=== PATIENT | male | born 1945 | race Caucasian/White ===

== ENCOUNTER 2023-12-01 14:46 | Emergency (ER) | payer OTHER ==
[~2023-12-01] VITALS: Ht 180.3 cm; Wt 90.9 kg
[2023-12-01] MEDS: SODIUM CHLORIDE 0.9% 1,000 ML IV ONE (15:18)
[2023-12-01] MEDS: ONDANSETRON HCL 4 MG/2 ML VIAL IV ONE (15:21)
[2023-12-01 15:48] LABS: Basophils # (auto) 0 10 ^3/uL (0-0.2); Basophils % (auto) 0.5 % (0.0-2.0); Eosinophils # (auto) 0 10 ^3/uL (0-0.8); Eosinophils % (auto) 0.3 % (0.0-7.0); Hematocrit 41.7 % (41.0-53.0); Hemoglobin 14.1 g/dL (13.5-17.5); Lymphocytes % (auto) 10.5 % (10.0-50.0); Mean Corpuscular Hemoglobin 30.3 pg (28.0-32.0); Mean Corpuscular Hgb Conc. 33.8 g/dL (32.0-36.0); Mean Corpuscular Volume 89.6 fL (80.0-100.0); Monocytes # (auto) 0.9 10 ^3/uL (0-1.3); Monocytes % (auto) 10.4 % (0.0-12.0); Neutrophils # (auto) 7.1 10 ^3/uL (1.6-8.6); Neutrophils % (auto) 78.3 % (37.0-80.0); Nucleated Red Blood Cells % 0.2 %; Red Blood Cells 4.65 10^6/uL (4.5-5.90); White Blood Cell 9.1 10^3/uL (4.4-10.8)
[2023-12-01 16:02] LABS: Alkaline Phosphatase 47 U/L (46-116); Anion Gap 8 (5-15); Aspartate Aminotransferase 9 U/L (13-40); BUN/Creatinine Ratio 25.4 (10.0-20.0); Blood Urea Nitrogen 18 mg/dL (9-23); Calcium 9.5 mg/dL (8.5-10.1); Carbon Dioxide 26 mmol/L (20-30); Chloride 106 mmol/L (98-107); Glucose 93 mg/dL (74-106); Potassium 3.8 mmol/L (3.5-5.1); Sodium 140 mmol/L (136-145)
[2023-12-01 16:03] LABS: Albumin 3.7 g/dL (3.2-4.8); Bilirubin, Total 0.6 mg/dL (0.2-1.0); Total Protein 5.5 g/dL (5.7-8.2)
[2023-12-01 16:04] LABS: Alanine Aminotransferase < 9 U/L (7-40)
[2023-12-01 17:20] VITALS: RESP 18; O2SAT 95
[2023-12-01 19:30] VITALS: PULSE 62; RESP 20; O2SAT 90
[2023-12-01 22:21] LABS: Urine Bacteria None Seen /hpf (None Seen)
[2023-12-01 22:34] LABS: Urine Blood Negative /uL (Negative); Urine Clarity Clear (Clear); Urine Color Yellow (Yellow); Urine Hyaline Cast MANY /lpf (0 - 2); Urine Mucus FEW (None Seen); Urine Protein, UAD TRACE (Negative); Urine Specific Gravity 1.021 (1.001-1.035); Urine Urobilinogen Normal (Negative); Urine WBC 1 /hpf (0 - 3)
[2023-12-01 23:05] VITALS: BP 97/67; PULSE 66; RESP 24; TEMP 98.3; O2SAT 92
== END 2023-12-01 23:30 | disposition short-term general hospital (02) ==
LOC: ER 14:46 → EDBD 14:46 → ER 23:30
DX: K80.20 Calculus of gallbladder without cholecystitis without obstruction (principal); K56.41 Fecal impaction; I11.0 Hypertensive heart disease with heart failure; I50.9 Heart failure, unspecified; E11.9 Type 2 diabetes mellitus without complications; Z95.0 Presence of cardiac pacemaker; Z85.828 Personal history of other malignant neoplasm of skin; Z88.8 Allergy status to other drugs, medicaments and biological substances
CPT/HCPCS: 36415; 74176; 80053; 81001; 85025; 96361; 96374; 99285; J2405; J7030